=== PATIENT | male | born 1960 | race Caucasian/White ===

== ENCOUNTER 2023-01-11 02:59 | Outpatient (CLI) | payer BC, SELFPAY ==
[2023-01-11 08:09] LABS: Abs Immature Grans 0.02 10^3/uL (0.0-0.06); Absolute Basophil Count 0.04 10^3/uL (0.0-0.2); Absolute Eosinophil Count 0.11 10^3/uL (0.0-0.7); Absolute Lymphocyte Count 1.25 10^3/uL (1.2-3.4); Absolute Monocyte Count 0.48 10^3/uL (0.1-0.8); Absolute Neutrophil Count 3.68 10^3/uL (1.2-6.7); Basophils % 0.7; HCT 38.5 % (40.0-50.0); HGB 13.5 g/dL (13.5-17.5); Immature Grans % 0.4; Lymphocytes % 22.4; MCH 32.7 pg (27.0-33.0); MCHC 35.1 % (32.0-36.0); MCV 93 fL (80-95); MPV 8.3 fL (8.0-11.0); Monocytes % 8.6; Neutrophils % 65.9; Platelet Count 181 10^3/uL (130-400); RBC 4.13 10^6/uL (4.36-5.78); RDW 11.2 % (11.8-14.1); RDW-SD 38.2 fL; WBC 5.58 10^3/uL (4.4-10.8)
[2023-01-11 08:26] LABS: AST 20 U/L (15-37); Albumin 3.8 g/dL (3.4-5.0); BUN 10 mg/dL (7-18); Bilirubin, Total 0.4 mg/dL (0.2-1.0); CREATININE 0.9 mg/dL (0.70-1.30); Calcium 9.4 mg/dL (8.5-10.1); Chloride 104 mmol/L (98-107); Estimated GFR 95.97 (mL/min/1.73m2); Glucose 95 mg/dL (74-106); Potassium 4.2 mmol/L (3.5-5.1); Total Protein 7.1 g/dL (6.4-8.2)
[2023-01-11 10:19] LABS: ALT 46 U/L (16-63); Alkaline Phosphatase 79 U/L (46-116); Anion Gap 7.4 mmol/L (3-11); CO2 31.6 mmol/L (21.0-32.0); Sodium 143 mmol/L (136-145)
== END 2023-01-11 03:00 | disposition home or self-care (01) ==
LOC: LBO 02:59
PROVIDERS: PCP Physician Assistant Medical; Visit Provider Internal Medicine
DX: C71.9 Malignant neoplasm of brain, unspecified (principal)
CPT/HCPCS: 36415; 80053; 85025

== ENCOUNTER 2023-01-18 02:27 | Outpatient (CLI) | payer BC, SELFPAY ==
[2023-01-18 07:39] LABS: Abs Immature Grans 0.03 10^3/uL (0.0-0.06); Absolute Basophil Count 0.03 10^3/uL (0.0-0.2); Absolute Eosinophil Count 0.15 10^3/uL (0.0-0.7); Absolute Lymphocyte Count 1.53 10^3/uL (1.2-3.4); Absolute Monocyte Count 0.71 10^3/uL (0.1-0.8); Absolute Neutrophil Count 3.91 10^3/uL (1.2-6.7); Basophils % 0.5; Eosinophils % 2.4; HCT 39.6 % (40.0-50.0); HGB 13.7 g/dL (13.5-17.5); Immature Grans % 0.5; Lymphocytes % 24.1; MCH 32.5 pg (27.0-33.0); MCHC 34.6 % (32.0-36.0); MCV 94 fL (80-95); MPV 8.6 fL (8.0-11.0); Monocytes % 11.2; Neutrophils % 61.3; Platelet Count 168 10^3/uL (130-400); RBC 4.21 10^6/uL (4.36-5.78); RDW 11.5 % (11.8-14.1); RDW-SD 39.3 fL; WBC 6.36 10^3/uL (4.4-10.8)
[2023-01-18 07:53] LABS: ALT 71 U/L (16-63); AST 35 U/L (15-37); Albumin 3.8 g/dL (3.4-5.0); Alkaline Phosphatase 82 U/L (46-116); Anion Gap 5.3 mmol/L (3-11); BUN 8 mg/dL (7-18); Bilirubin, Total 0.5 mg/dL (0.2-1.0); CO2 30.7 mmol/L (21.0-32.0); CREATININE 0.9 mg/dL (0.70-1.30); Calcium 9.6 mg/dL (8.5-10.1); Chloride 105 mmol/L (98-107); Estimated GFR 95.97 (mL/min/1.73m2); Glucose 103 mg/dL (74-106); Potassium 4.2 mmol/L (3.5-5.1); Sodium 141 mmol/L (136-145)
== END 2023-01-18 02:28 | disposition home or self-care (01) ==
LOC: LBO 02:28
PROVIDERS: PCP Physician Assistant Medical; Visit Provider Internal Medicine
DX: C71.9 Malignant neoplasm of brain, unspecified (principal)
CPT/HCPCS: 36415; 80053; 85025

== ENCOUNTER 2023-01-26 04:15 | Outpatient (CLI) | payer BC, SELFPAY ==
[2023-01-26 09:13] LABS: Abs Immature Grans 0.02 10^3/uL (0.0-0.06); Absolute Basophil Count 0.03 10^3/uL (0.0-0.2); Absolute Lymphocyte Count 1.37 10^3/uL (1.2-3.4); Absolute Monocyte Count 0.65 10^3/uL (0.1-0.8); Absolute Neutrophil Count 4.33 10^3/uL (1.2-6.7); Basophils % 0.5; Eosinophils % 1.5; HCT 39.9 % (40.0-50.0); HGB 13.9 g/dL (13.5-17.5); Immature Grans % 0.3; Lymphocytes % 21.1; MCH 32.6 pg (27.0-33.0); MCHC 34.8 % (32.0-36.0); MCV 94 fL (80-95); MPV 8.8 fL (8.0-11.0); Neutrophils % 66.6; Platelet Count 196 10^3/uL (130-400); RBC 4.26 10^6/uL (4.36-5.78); RDW 11.7 % (11.8-14.1); RDW-SD 39.8 fL
[2023-01-26 09:31] LABS: ALT 50 U/L (16-63); AST 22 U/L (15-37); Albumin 3.9 g/dL (3.4-5.0); Alkaline Phosphatase 79 U/L (46-116); Anion Gap 6.1 mmol/L (3-11); BUN 11 mg/dL (7-18); Bilirubin, Total 0.5 mg/dL (0.2-1.0); CO2 29.9 mmol/L (21.0-32.0); CREATININE 0.9 mg/dL (0.70-1.30); Calcium 9.3 mg/dL (8.5-10.1); Chloride 107 mmol/L (98-107); Estimated GFR 95.97 (mL/min/1.73m2); Glucose 96 mg/dL (74-106); Sodium 143 mmol/L (136-145); Total Protein 7.2 g/dL (6.4-8.2)
== END 2023-01-26 04:16 | disposition home or self-care (01) ==
LOC: LBO 04:15
PROVIDERS: PCP Physician Assistant Medical; Visit Provider Internal Medicine
DX: C71.9 Malignant neoplasm of brain, unspecified (principal)
CPT/HCPCS: 36415; 80053; 85025

== ENCOUNTER 2023-02-01 03:37 | Outpatient (CLI) | payer BC, SELFPAY ==
[2023-02-01 09:10] LABS: Abs Immature Grans 0.02 10^3/uL (0.0-0.06); Absolute Basophil Count 0.03 10^3/uL (0.0-0.2); Absolute Monocyte Count 0.69 10^3/uL (0.1-0.8); Absolute Neutrophil Count 5.12 10^3/uL (1.2-6.7); Basophils % 0.4; Eosinophils % 1.4; HCT 42.5 % (40.0-50.0); HGB 14.5 g/dL (13.5-17.5); Immature Grans % 0.3; Lymphocytes % 16.8; MCH 32.2 pg (27.0-33.0); MCHC 34.1 % (32.0-36.0); MCV 94 fL (80-95); Monocytes % 9.6; Neutrophils % 71.5; Platelet Count 209 10^3/uL (130-400); RDW 11.9 % (11.8-14.1); RDW-SD 41.1 fL; WBC 7.16 10^3/uL (4.4-10.8)
[2023-02-01 09:32] LABS: ALT 49 U/L (16-63); AST 23 U/L (15-37); Albumin 3.9 g/dL (3.4-5.0); Alkaline Phosphatase 78 U/L (46-116); Anion Gap 4.6 mmol/L (3-11); BUN 9 mg/dL (7-18); Bilirubin, Total 0.6 mg/dL (0.2-1.0); CO2 30.4 mmol/L (21.0-32.0); CREATININE 0.8 mg/dL (0.70-1.30); Calcium 9.3 mg/dL (8.5-10.1); Chloride 105 mmol/L (98-107); Estimated GFR 99.44 (mL/min/1.73m2); Glucose 90 mg/dL (74-106); Potassium 3.9 mmol/L (3.5-5.1); Sodium 140 mmol/L (136-145); Total Protein 7.4 g/dL (6.4-8.2)
== END 2023-02-01 03:38 | disposition home or self-care (01) ==
LOC: LBO 03:37
PROVIDERS: PCP Physician Assistant Medical; Visit Provider Internal Medicine
DX: C71.9 Malignant neoplasm of brain, unspecified (principal)
CPT/HCPCS: 36415; 80053; 85025

== ENCOUNTER 2023-02-08 04:47 | Outpatient (CLI) | payer BC, SELFPAY ==
[2023-02-08 09:02] LABS: Abs Immature Grans 0.01 10^3/uL (0.0-0.06); Absolute Basophil Count 0.03 10^3/uL (0.0-0.2); Absolute Eosinophil Count 0.11 10^3/uL (0.0-0.7); Absolute Monocyte Count 0.69 10^3/uL (0.1-0.8); Absolute Neutrophil Count 4.19 10^3/uL (1.2-6.7); Basophils % 0.5; Eosinophils % 1.8; HCT 40.2 % (40.0-50.0); HGB 13.9 g/dL (13.5-17.5); Immature Grans % 0.2; Lymphocytes % 16.6; MCH 32.6 pg (27.0-33.0); MCHC 34.6 % (32.0-36.0); MCV 94 fL (80-95); Monocytes % 11.4; Neutrophils % 69.5; Platelet Count 170 10^3/uL (130-400); RBC 4.27 10^6/uL (4.36-5.78); RDW 11.9 % (11.8-14.1); RDW-SD 40.8 fL; WBC 6.03 10^3/uL (4.4-10.8)
[2023-02-08 09:18] LABS: ALT 45 U/L (16-63); AST 21 U/L (15-37); Albumin 3.9 g/dL (3.4-5.0); Alkaline Phosphatase 75 U/L (46-116); Anion Gap 2.1 mmol/L (3-11); BUN 10 mg/dL (7-18); Bilirubin, Total 0.7 mg/dL (0.2-1.0); CO2 31.9 mmol/L (21.0-32.0); CREATININE 0.9 mg/dL (0.70-1.30); Calcium 9.7 mg/dL (8.5-10.1); Chloride 105 mmol/L (98-107); Estimated GFR 95.97 (mL/min/1.73m2); Glucose 91 mg/dL (74-106); Potassium 4.1 mmol/L (3.5-5.1); Sodium 139 mmol/L (136-145); Total Protein 7.2 g/dL (6.4-8.2)
== END 2023-02-08 04:48 | disposition home or self-care (01) ==
LOC: LBO 04:47
PROVIDERS: PCP Physician Assistant Medical; Visit Provider Internal Medicine
DX: C71.9 Malignant neoplasm of brain, unspecified (principal)
CPT/HCPCS: 36415; 80053; 85025

== ENCOUNTER 2023-02-15 04:15 | Outpatient (CLI) | payer BC, SELFPAY ==
[2023-02-15 09:10] LABS: Abs Immature Grans 0.01 10^3/uL (0.0-0.06); Absolute Basophil Count 0.04 10^3/uL (0.0-0.2); Absolute Eosinophil Count 0.12 10^3/uL (0.0-0.7); Absolute Lymphocyte Count 0.69 10^3/uL (1.2-3.4); Absolute Monocyte Count 0.71 10^3/uL (0.1-0.8); Absolute Neutrophil Count 4.64 10^3/uL (1.2-6.7); Basophils % 0.6; Eosinophils % 1.9; HCT 40.1 % (40.0-50.0); HGB 13.8 g/dL (13.5-17.5); Immature Grans % 0.2; Lymphocytes % 11.1; MCH 32.6 pg (27.0-33.0); MCHC 34.4 % (32.0-36.0); MCV 95 fL (80-95); MPV 9.4 fL (8.0-11.0); Monocytes % 11.4; Neutrophils % 74.8; Platelet Count 131 10^3/uL (130-400); RBC 4.23 10^6/uL (4.36-5.78); RDW-SD 41.7 fL; WBC 6.21 10^3/uL (4.4-10.8)
[2023-02-15 09:32] LABS: ALT 44 U/L (16-63); AST 22 U/L (15-37); Albumin 3.8 g/dL (3.4-5.0); Alkaline Phosphatase 76 U/L (46-116); Anion Gap 7.3 mmol/L (3-11); BUN 10 mg/dL (7-18); Bilirubin, Total 0.8 mg/dL (0.2-1.0); CO2 29.7 mmol/L (21.0-32.0); Calcium 9.2 mg/dL (8.5-10.1); Chloride 106 mmol/L (98-107); Estimated GFR 84.57 (mL/min/1.73m2); Glucose 99 mg/dL (74-106); Sodium 143 mmol/L (136-145)
== END 2023-02-15 04:16 | disposition home or self-care (01) ==
LOC: LBO 04:16
PROVIDERS: PCP Physician Assistant Medical; Visit Provider Internal Medicine
DX: C71.9 Malignant neoplasm of brain, unspecified (principal)
CPT/HCPCS: 36415; 80053; 85025

== ENCOUNTER 2023-03-18 00:43 | Outpatient (CLI) | payer BC, SELFPAY ==
--- NOTE | 2023-03-18 | DI.MRI_ITS ---
Exam(s) MR BRAIN WO/W EXAM: MR BRAIN WO/W CLINICAL HISTORY: GLIOBLASTOMA, C71.9, POST XRT BASELINE. TECHNIQUE: Multiplanar multisequence MRI of the brain was performed. CONTRAST MATERIAL: IV Contrast: 17 ML of Dotarem contrast administered. COMPARISON: No exams were available for comparison FINDINGS: VENTRICLES AND EXTRA AXIAL SPACES: Normal in size and morphology for the patient's age. HEMORRHAGE: Please see the section under cerebral parenchyma. CEREBRAL PARENCHYMA: There are findings of a prior right frontal craniotomy. There is a 4.3 x 3.3 x 4.0 cm cavity in the right frontal lobe. There is mild enhancement following contrast administration around the periphery of the cavity. There is soft tissue component seen in the floor of the cavity which does not enhance. Gradient images show evidence of prior hemorrhage. There is mild edema seen in the surrounding white matter. There is mild mass-effect on the anterior horn of the right latera l ventricle. No significant right to left midline shift is noted. No other intracranial masses are identified. On the sagittal images note is made of mild hyperintense signal in the anterior corpus c allosum. MIDLINE SHIFT: None. BRAINSTEM/CEREBELLUM: Normal. CALVARIUM: Please see the section under cerebral parenchyma. ENHANCEMENT: Please see the section under cerebral parenchyma. VISUALIZED PARANASAL SINUSES/MASTOIDS: Small mucous retention cysts or polyps are seen in the left ma xillary sinus. There is mild mucosal thickening in the right maxillary sinus. The remaining visuali zed paranasal sinuses are clear. OTHER FINDINGS: None. IMPRESSION: Status post resection in the right frontal lobe as described above. There is mild thin enhancement s een around the periphery of the cavity. There is mild mass effect on the right lateral ventricle. I f there are prior films for comparison they may be submitted and an addendum will be issued at that t yaneli. DATA REPOSITORY:
[2023-03-18] MEDS: Gadoterate meglumine 20 ML SYRINGE IVP (11:40)
[2023-03-18] MEDS: Normal Saline Flush 10 ML SYR IVP (11:51)
== END 2023-03-18 01:03 ==
LOC: DI 00:44
PROVIDERS: PCP Physician Assistant Medical; Visit Provider Internal Medicine
DX: C71.9 Malignant neoplasm of brain, unspecified (principal); R94.02 Abnormal brain scan
CPT/HCPCS: 70553

== ENCOUNTER 2023-03-18 10:48 | Outpatient (CLI) | payer BC, SELFPAY ==
[2023-03-18 12:00] LABS: Abs Immature Grans 0.01 10^3/uL (0.0-0.06); Absolute Basophil Count 0.03 10^3/uL (0.0-0.2); Absolute Eosinophil Count 0.07 10^3/uL (0.0-0.7); Absolute Lymphocyte Count 0.68 10^3/uL (1.2-3.4); Absolute Monocyte Count 0.49 10^3/uL (0.1-0.8); Absolute Neutrophil Count 3.72 10^3/uL (1.2-6.7); Basophils % 0.6; Eosinophils % 1.4; HCT 36.4 % (40.0-50.0); HGB 12.7 g/dL (13.5-17.5); Immature Grans % 0.2; Lymphocytes % 13.6; MCH 31.8 pg (27.0-33.0); MCHC 34.9 % (32.0-36.0); MCV 91 fL (80-95); MPV 9.7 fL (8.0-11.0); Monocytes % 9.8; Neutrophils % 74.4; Platelet Count 115 10^3/uL (130-400); RBC 3.99 10^6/uL (4.36-5.78); RDW 11.4 % (11.8-14.1); RDW-SD 38.2 fL
[2023-03-18 12:27] LABS: ALT 41 U/L (16-63); AST 20 U/L (15-37); Albumin 3.9 g/dL (3.4-5.0); Alkaline Phosphatase 72 U/L (46-116); Anion Gap 7.1 mmol/L (3-11); BUN 10 mg/dL (7-18); Bilirubin, Total 0.7 mg/dL (0.2-1.0); CO2 29.9 mmol/L (21.0-32.0); CREATININE 0.9 mg/dL (0.70-1.30); Calcium 9.2 mg/dL (8.5-10.1); Chloride 106 mmol/L (98-107); Estimated GFR 95.97 (mL/min/1.73m2); Glucose 95 mg/dL (74-106); Potassium 3.5 mmol/L (3.5-5.1); Sodium 143 mmol/L (136-145); Total Protein 6.8 g/dL (6.4-8.2)
[2023-03-18 16:40] LABS: ESR 1 mm/hr (0-20)
[2023-03-18 16:46] LABS: C-Reactive Protein < 0.05 mg/dL (0.0-0.3)
== END 2023-03-18 10:49 | disposition home or self-care (01) ==
LOC: LBO 10:53
PROVIDERS: PCP Physician Assistant Medical; Visit Provider Internal Medicine
DX: C71.9 Malignant neoplasm of brain, unspecified (principal)
CPT/HCPCS: 36415; 80053; 85652; 85025; 86140

== ENCOUNTER 2024-12-25 00:10 | Outpatient (CLI) | payer MEDICARE, OTHER, SELFPAY ==
--- NOTE | 2024-12-25 | DI.MRI_ITS ---
Exam(s) MR BRAIN WO/W EXAM: MR BRAIN WO/W CLINICAL HISTORY: ANAPLASTIC GLIOBLASTOMA, GLIOBLASTOMA, C71.9. TECHNIQUE: Multiplanar multisequence MRI of the brain was performed. CONTRAST MATERIAL: IV Contrast: 17 ML of Dotarem contrast administered. COMPARISON: MR MRI BRAIN from 11/27/2024 FINDINGS: VENTRICLES AND EXTRA AXIAL SPACES: Normal in size and morphology for the patient's age. HEMORRHAGE: None. CEREBRAL PARENCHYMA: No focus of restricted diffusion to suggest acute infarct. The encephalomalacia in the right frontal lobe consistent with resection cavity. Stable amount of adjacent edema. Stable p eripheral enhancement. The tiny focus of enhancement noted lateral to the resection cavity is no long er visible. This there is a stable area of enhancement in the splenium of the left corpus callosum. U nder are 2 stone or tiny stable foci enhancement adjacent to the right lateral ventricle, close to th e resection site. No new or areas of enhancement. Small right temporal fossa arachnoid cyst again not ed. No mass effect. BRAINSTEM/CEREBELLUM: Normal. CALVARIUM: Right frontal craniotomy ENHANCEMENT: No suspicious enhancement identified. VISUALIZED PARANASAL SINUSES/MASTOIDS: Small amount of mucous retention in maxillary sinuses. Orbits: Unremarkable. Pituitary: Not enlarged. Vasculature: Normal flow voids. IMPRESSION: Stable appearance of right frontal tumor resection site. The tiny focus of enhancement lateral to the resection site is no longer visible. Stable foci of enhancement adjacent to the anterior horn of the right lateral ventricle and left sple nium of the corpus callosum. DATA REPOSITORY:
[2024-12-25] MEDS: Gadoterate meglumine 20 ML SYRINGE 17 ML IVP (10:41)
[2024-12-25] MEDS: Normal Saline Flush 10 ML SYR IVP (10:42)
== END 2024-12-25 00:30 ==
PROVIDERS: PCP Physician Assistant Medical; Visit Provider Psychiatry & Neurology Neurology
DX: C71.9 Malignant neoplasm of brain, unspecified (principal)
CPT/HCPCS: 70553